=== PATIENT | male | born 1975 ===

== ENCOUNTER 2018-07-16 11:38 | Emergency (ER) | payer OTHER ==
[2018-07-16 11:48] VITALS: O2SAT 95
--- NOTE | 2018-07-16 12:18 | C.PDOC ---
History Of Present Illness Virtual Initial Provider Note 43yo male c/o multiple issues including rectal bleeding when wipes, L flank pain with polyuria and frequency, SOB and chest discomfort, sensation of "choking" when sleeping. Rectal bleeding ongoing intermittently for months, flank pain and urinary symptoms started more recently. Denies fever, headache, nausea, diarrhea or hematuria. He has not seen primary care in many years. 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) History/Exam Limitations: no limitations Onset/Duration Of Symptoms: Days (2-3 days but ) Location Of Discomfort (Image): 1 - pain <Johnson Wilks III - Last Filed: 07/16/18 12:25> <Mariana Hernandez - Last Filed: 07/16/18 15:12> Time Seen by Provider: 07/16/18 12:06 Chief Complaint (Nursing): Back Pain Past Medical History Reviewed: Historical Data, Nursing Documentation, Vital Signs Vital Signs: Last Vital Signs Temp 98.6 F 07/16/18 11:43 Pulse 88 07/16/18 11:43 Resp 18 07/16/18 11:43 BP 125/76 07/16/18 11:43 Pulse Ox 95 07/16/18 11:43 - Medical History PMH: No Chronic Diseases Other PMH: has not seen primary care in many years Other Surgeries: orthopedic to foot Family History: States: Unknown Family Hx - Social History Hx Alcohol Use: No Hx Substance Use: No - Immunization History Hx Tetanus Toxoid Vaccination: No Hx Influenza Vaccination: No Hx Pneumococcal Vaccination: No <Johnson Wilks III - Last Filed: 07/16/18 12:25> Vital Signs: Last Vital Signs Temp 98.6 F 07/16/18 11:43 Pulse 88 07/16/18 11:43 Resp 18 07/16/18 11:43 BP 125/76 07/16/18 11:43 Pulse Ox 95 07/16/18 12:26 <Mariana Hernandez - Last Filed: 07/16/18 15:12> Review Of Systems Constitutional: Negative for: Fever, Chills Cardiovascular: Positive for: Chest Pain. Negative for: Orthopnea, Edema Respiratory: Positive for: Cough, Shortness of Breath Gastrointestinal: Positive for: Other (flank). Negative for: Vomiting, Abdominal Pain Genitourinary: Negative for: Dysuria, Frequency Musculoskeletal: Positive for: Back Pain Skin: Negative for: Rash, Lesions, Jaundice Neurological: Negative for: Weakness, Numbness, Headache, Dizziness Psych: Negative for: Depression <Johnson Wilks III - Last Filed: 07/16/18 12:25> Physical Exam - Physical Exam Appears: Well, Non-toxic, No Acute Distress Skin: Normal Color, Warm, Dry Eye(s): bilateral: Normal Inspection Oral Mucosa: Moist Tongue: Normal Appearing, No Swelling Lips: Normal Appearing, No Swelling Throat: Normal, No Erythema, No Exudate, No Drooling Neck: Other (thick neck) Lymphatic: No Adenopathy Cardiovascular: Rhythm Regular Respiratory: Normal Breath Sounds, No Rales, No Rhonchi, No Wheezing Gastrointestinal/Abdominal: Normal Exam, Bowel Sounds, Soft, No Tenderness, Other (Obese) Rectal: Other (rectal exam refused) Back: No CVA Tenderness, No Vertebral Tenderness, Paraspinal Tenderness (left lumbar paraspinal TTP) Extremity: Normal ROM, No Pedal Edema, No Calf Tenderness Neurological/Psych: Oriented x3 <Mariana Hernandez - Last Filed: 07/16/18 15:12> ED Course And Treatment O2 Sat by Pulse Oximetry: 95 <Johnson Wilks III - Last Filed: 07/16/18 12:25> - Laboratory Results Result Diagrams: 07/16/18 13:05 07/16/18 13:05 Lab Results: Total Bilirubin 0.7 mg/dL (0.2-1.3) 07/16/18 13:05 AST 44 U/L (17-59) 07/16/18 13:05 ALT 57 U/L (21-72) 07/16/18 13:05 Alkaline Phosphatase 99 U/L (38-126) 07/16/18 13:05 Total Protein 7.8 g/dL (6.3-8.3) 07/16/18 13:05 Albumin 4.6 g/dL (3.5-5.0) 07/16/18 13:05 Globulin 3.2 gm/dL (2.2-3.9) 07/16/18 13:05 Albumin/Globulin Ratio 1.5 (1.0-2.1) 07/16/18 13:05 Urine Color Yellow (YELLOW) 07/16/18 13:05 Urine Clarity Clear (Clear) 07/16/18 13:05 Urine pH 7.0 (5.0-8.0) 07/16/18 13:05 Ur Specific [place] 1.018 (1.003-1.030) 07/16/18 13:05 Urine Protein Negative mg/dL (NEGATIVE) 07/16/18 13:05 Urine Glucose (UA) Normal mg/dL (Normal) 07/16/18 13:05 Urine Ketones Negative mg/dL (NEGATIVE) 07/16/18 13:05 Urine Blood Negative (NEGATIVE) 07/16/18 13:05 Urine Nitrate Negative (NEGATIVE) 07/16/18 13:05 Urine Bilirubin Negative (NEGATIVE) 07/16/18 13:05 Urine Urobilinogen Normal mg/dL (0.2-1.0) 07/16/18 13:05 Ur Leukocyte Esterase Negative Charly/uL (Negative) 07/16/18 13:05 Urine WBC (Auto) 1 /hpf (0-5) 07/16/18 13:05 Urine RBC (Auto) < 1 /hpf (0-3) 07/16/18 13:05 Ur Squamous Epith Cells < 1 /hpf (0-5) 07/16/18 13:05 ECG: Interpreted By Me, Viewed By Me (NSR 81 bpm, normal axis, T wave flattening/inversion aVL, no acute ST changes) ECG Interpretation: No Acute Changes O2 Sat by Pulse Oximetry: 95 (RA) Pulse Ox Interpretation: Normal - Other Rad CXR X-Ray: Viewed By Me, Read By Radiologist Interpretation: Accession No. : [id number]. Patient Name / ID : PAT SMITH / [id number]. Exam Date : 07/16/2018 13:17:35 ( Approved ). Study Comment : Sex / Age : M / 43Y. Creator : Amy Pereira MD. Dictator : Amy Pereira MD. Global Consumer Sector Vice President : Hot Kettle Tender : Amy Pereira MD. Approver2 : Report Date : 07/16/2018 13:46:53. My Comment : . HISTORY: chest pain/ r/o infiltrate. COMPARISON: None available. TECHNIQUE: Chest PA and lateral. FINDINGS: LUNGS: No focal consolidation. Please note that chest x-ray has limited sensitivity for the detection of pulmonary masses. PLEURA: No significant pleural effusion identified. No definite pneumothorax . CARDIOVASCULAR: Heart size appears within normal limits. No atherosclerotic calcification present. OSSEOUS STRUCTURES: No acute osseous abnormality identified. VISUALIZED UPPER ABDOMEN: Unremarkable. OTHER FINDINGS: None. IMPRESSION: No focal consolidation. - CT Scan/US ct abd/pelvis Other Rad Studies (CT/US): Read By Radiologist, Radiology Report Reviewed CT/US Interpretation: Accession No. : [id number]. Patient Name / ID : PAT SMITH / [id number]. Exam Date : 07/16/2018 12:54:12 ( Approved ). Study Comment : Sex / Age : M / 43Y. Creator : Jeannette Wynne. Dictator : Amy Pereira MD. Global Consumer Sector Vice President : Hot Kettle Tender : Amy Pereira MD. Approver2 : Report Date : 07/16/2018 13:38:40. My Comment : . PROCEDURE: CT Abdomen and Pelvis without Oral or IV contrast. HISTORY: upper abd pain hx cholecystectomy. COMPARISON: None available. TECHNIQUE: Contiguous axial images of the abdomen and pelvis. No oral or IV contrast administered. Coronal and Sagittal reformats generated and reviewed. Radiation dose: Total exam DLP = 999.58 mGy-cm. This CT exam was performed using one or more of the following dose reduction techniques: Automated exposure control, adjustment of the mA and/or kV according to patient size, and/or use of iterative reconstruction technique. FINDINGS: There is limited evaluation of the solid organs without the administration of IV contrast . LOWER THORAX: No visible consolidation, pleural effusion, or pneumothorax. LIVER: Unremarkable unenhanced appearance. GALLBLADDER AND BILE DUCTS: Contracted gallbladder with suspected small gallstones. PANCREAS: Unremarkable unenhanced appearance. SPLEEN: Unremarkable unenhanced appearance. ADRENALS: Unremarkable unenhanced appearance. KIDNEYS AND URETERS: No hydronephrosis or obstructing renal calculus. BLADDER: The urinary bladder appears unremarkable. REPRODUCTIVE: Unremarkable. APPENDIX: The appendix appears within normal limits of caliber. No secondary signs of acute appendicitis. BOWEL: Fluid and ingested debris within an incompletely distended stomach. Lack of oral contrast limits evaluation for bowel pathology. The bowel loops appear within normal limits of caliber without evidence of intestinal obstruction. PERITONEUM: No significant free fluid. No definite free air. LYMPH NODES: No bulky lymphadenopathy identified. VASCULATURE: No significant atherosclerotic calcifications. No aortic aneurysm. BONES: Mild degenerative changes. OTHER FINDINGS: Small fat containing ventral hernia. IMPRESSION: Contracted gallbladder with suspected small gallstones. Findings discussed with Dr. Hernandez on 07/16/18 at 159 p.m. Progress Note: Patient c/o left low back/flank pain x approx 1-2 weeks, constant, nonradiating, not associated with abd pain/N/V/D/fever/dysuria. He admits to several episodes of BRB per rectum with BMs, 3-4 times in past several months, last time was 2 months ago. Patient also c/o choking sensation when sleeping, associated with occasional chest discomfort and SOB. 2:30pm- Patient refused rectal exam, states he he has not had bleeding in approx two months, does not want to be examined. 3:10pm- Patient resting comfortably, in no pain/distress. CT scan shows gallstones, no evidence of cholecystitis or other intraabdominal acute finding. Blood work, UA, EKG, CXR unremarkable. Patient instructed to follow up in medical clinic in 1-2 days, and with general surgeon within 1 week for further evaluation of gallstones. <Jian Hernandezia A - Last Filed: 07/16/18 15:12> Medical Decision Making Medical Decision Making: No prior charts available to review. patient seen for initial virtual encounter, orders placed and visual physical exam performed, care transferred to ground based MD 1225pm <Johnson Wilks III - Last Filed: 07/16/18 12:25> Disposition <Johnson Wilks III - Last Filed: 07/16/18 12:25> Counseled Patient/Family Regarding: Studies Performed, Diagnosis, Need For Followup, Rx Given - Disposition Disposition Time: 15:10 <Jian Hernandezia A - Last Filed: 07/16/18 15:12> - Disposition Referrals: [facility] at [facility] [Outside] Gregor Ruiz MD [Staff Provider] - Disposition: HOME/ ROUTINE Condition: STABLE Additional Instructions: FOLLOW UP WITH MEDICAL CLINIC IN 1-2 DAYS, AND WITH GENERAL SURGEON WITHIN 1 WEEK USE PAIN MEDICATION NEEDED RETURN TO EMERGENCY ROOM IF YOUR SYMPTOM BECOME WORSE SEGUIR CON LA CLNICA MDICA EN 1-2 FLETCHER, Y CON EL CIRUJANO GENERAL DENTRO DE 1 SEMANA UTILICE MEDICAMENTOS PARA EL DOLOR SEGN LO NECESARIO VUELVA A LA SAMAN DE EMERGENCIA SI PIÑA SNTOMA SE ACOMPAA Prescriptions: Acetaminophen [Tylenol 325mg tab] 650 mg PO Q6 PRN #30 tab PRN Reason: pain/fever Cyclobenzaprine [Flexeril] 10 mg PO BID PRN #15 tab PRN Reason: Muscle Spasm Instructions: Low Back Pain (DC), Gallstones (DC) Forms: [employer] (Croatian) Print Language: PASHTO - Clinical Impression Clinical Impression: Left lumbar pain, Gallstones
[2018-07-16 13:08] LABS: URINE CLARITY Clear (Clear); URINE COLOR YELLOW (YELLOW)
[2018-07-16 13:09] LABS: BASO % 0.6 % (0.0-2.0); EOS # 0.2 K/uL (0.0-0.7); EOS % 3.3 % (0.0-4.0); HEMOGLOBIN 14.9 g/dL (12.0-18.0); LYMPH # 2.3 K/uL (1.0-4.3); LYMPH % 38.9 % (20.0-40.0); MEAN CELL VOLUME 83.5 fL (80.0-94.0); MEAN CORPUSCULAR HEMOGLOBIN 29.2 pg (27.0-31.0); MEAN CORPUSCULAR HGB CONC 34.9 g/dL (33.0-37.0); MEAN PLATELET VOLUME 9.4 fL (7.2-11.7); MONO # 0.4 K/uL (0.0-0.8); MONO % 6.4 % (0.0-10.0); NEUT % 50.8 % (50.0-75.0); NRBC % 0.1 % (0.0-2.0); RBC 5.11 Mil/uL (4.40-5.90); RED CELL DISTRIBUTION WIDTH 13.1 % (11.5-14.5); URINE BILIRUBIN NEGATIVE (NEGATIVE); URINE BLOOD NEGATIVE (NEGATIVE); URINE GLUCOSE (UA) Normal (Normal); URINE PROTEIN NEGATIVE (NEGATIVE); URINE UROBILINOGEN Normal mg/dL (0.2-1.0); WHITE BLOOD COUNT 5.9 K/uL (4.8-10.8)
[2018-07-16 13:10] LABS: SQUAMOUS EPITHIAL < 1 /hpf (0-5); URINE LEUKOCYTE ESTERASE NEGATIVE Leu/uL (Negative)
[2018-07-16 13:23] LABS: ALB/GLOB RATIO 1.5 (1.0-2.1); ALBUMIN 4.6 g/dL (3.5-5.0); ALT/SGPT 57 U/L (21-72); AST/SGOT 44 U/L (17-59); BLOOD UREA NITROGEN 12 mg/dL (9-20); CALCIUM 9.6 mg/dl (8.6-10.4); GFR NON-AFRICAN AMERICAN > 60
--- NOTE | 2018-07-16 13:50 | RAD ---
HISTORY: chest pain/ r/o infiltrate COMPARISON: None available. TECHNIQUE: Chest PA and lateral FINDINGS: LUNGS: No focal consolidation. Please note that chest x-ray has limited sensitivity for the detection of pulmonary masses. PLEURA: No significant pleural effusion identified. No definite pneumothorax . CARDIOVASCULAR: Heart size appears within normal limits. No atherosclerotic calcification present. OSSEOUS STRUCTURES: No acute osseous abnormality identified. VISUALIZED UPPER ABDOMEN: Unremarkable. OTHER FINDINGS: None. IMPRESSION: No focal consolidation.
--- NOTE | 2018-07-16 14:06 | CT ---
PROCEDURE: CT Abdomen and Pelvis without Oral or IV contrast. HISTORY: upper abd pain hx cholecystectomy COMPARISON: None available TECHNIQUE: Contiguous axial images of the abdomen and pelvis. No oral or IV contrast administered. Coronal and Sagittal reformats generated and reviewed. Radiation dose: Total exam DLP = 999.58 mGy-cm. This CT exam was performed using one or more of the following dose reduction techniques: Automated exposure control, adjustment of the mA and/or kV according to patient size, and/or use of iterative reconstruction technique. FINDINGS: There is limited evaluation of the solid organs without the administration of IV contrast. LOWER THORAX: No visible consolidation, pleural effusion, or pneumothorax. LIVER: Unremarkable unenhanced appearance. GALLBLADDER AND BILE DUCTS: Contracted gallbladder with suspected small gallstones. PANCREAS: Unremarkable unenhanced appearance. SPLEEN: Unremarkable unenhanced appearance. ADRENALS: Unremarkable unenhanced appearance. KIDNEYS AND URETERS: No hydronephrosis or obstructing renal calculus. BLADDER: The urinary bladder appears unremarkable. REPRODUCTIVE: Unremarkable. APPENDIX: The appendix appears within normal limits of caliber. No secondary signs of acute appendicitis. BOWEL: Fluid and ingested debris within an incompletely distended stomach. Lack of oral contrast limits evaluation for bowel pathology. The bowel loops appear within normal limits of caliber without evidence of intestinal obstruction. PERITONEUM: No significant free fluid. No definite free air. LYMPH NODES: No bulky lymphadenopathy identified. VASCULATURE: No significant atherosclerotic calcifications. No aortic aneurysm. BONES: Mild degenerative changes. OTHER FINDINGS: Small fat containing ventral hernia. IMPRESSION: Contracted gallbladder with suspected small gallstones. Findings discussed with Dr. Hernandez on 07/16/18 at 159 p.m.
[2018-07-16] MEDS ORDERED: Sodium Chloride 0.9% 1,000 ML IV ONE (14:18)
[2018-07-16] MEDS ORDERED: Sodium Chloride 0.9% 1,000 ML ONE (14:44)
[2018-07-16] MEDS ORDERED: Morphine 4 MG/ML VIAL ONE (14:44)
[2018-07-16 15:17] VITALS: BP 111/73; PULSE 75; RESP 20; TEMP 98.4
--- NOTE | 2018-07-17 15:18 | CARD ---
APPROVED REPORT Date of service: 07/16/2018 EKG Measurement Heart [id number] <Conclusion> Normal sinus rhythm Nonspecific T wave abnormality Abnormal ECG
== END 2018-07-16 15:26 | disposition home or self-care (01) ==
LOC: C.ER 11:38
DX: K80.80 Other cholelithiasis without obstruction (principal); M54.5 Low back pain
CPT/HCPCS: 71046; 74176; 80053; 81001; 82948; 85025; 93005; 96361; 96374; 99285; J2270; J7030